=== PATIENT | female | born 1990 | race Caucasian/White ===

== ENCOUNTER 2024-10-31 11:51 | Emergency (ER) | payer SELFPAY ==
[2024-10-31 11:58] VITALS: BP 165/106
--- NOTE | 2024-10-31 13:05 | ED.MUSCINJ ---
HPI-Injury
General
Chief Complaint: Musculo-Skeletal Complaint
Source: patient
Exam Limitations: none
Time Seen by Provider: 10/31/24 12:50
History of Present Illness-Injury
Initial Injury comments:
34-year-old female presents complaining of posterior left thigh pain starting today. 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 The
pain is made worse when she straightens her leg. No prior injury similar to this. No numbness or tingling. No other complaints at this time
Phy Exam
Physical Exam
Physical Exam:
General: Well-appearing female no acute respiratory distress
HEENT: Normocephalic atraumatic
Musculoskeletal exam: Left posterior thigh tender over the distal thigh. The posterior joint line of the knee is nontender. She is nontender anteriorly about the knee. Patient reluctant to straighten the leg as she has increased difficulty doing
so.
Injury Course
Orders/Labs/Results
Orders:
Orders
10/31/24 13:02
Crutches-Treatment ONCE
Knee Immobilizer Left-Treatmen ONCE
Ibuprofen [Motrin] 600 mg PO NOW STA
MDM/Problems Addressed
Differential Diagnosis Includes:
Left posterior thigh pain while running she felt a pop. This is likely a hamstring injury. Do not suspect fracture. Given traumatic injury do not suspect DVT.
Will be given crutches and a knee immobilizer will be advised to take anti-inflammatories and muscle relaxer with orthopedic follow-up. Imaging not indicated at this
*Pulse Oximetry
SaO2: 97
Oxygen Mode of Delivery: Room air
Patient hypoxic: no
*Critical Care Note
Total Time (30-74mins, 75-104mins- exclusive of procedures): Not Applicable
ED Attending Note
-
Portions of this chart may have been created with voice recognition software.� Occasional wrong word or��sound alike� substitutions may have occurred due to the inherent limitations of voice recognition software.
Discharge Plan
Departure
Patient Disposition: Home (Routine Discharge)
Date of Disposition: 10/31/24
Time of Disposition: 13:06
Patient with high blood pressure during this ER visit?: No
Discharge Problem:
Hamstring strain
Prescriptions:
New
cyclobenzaprine 10 mg tablet
10 mg PO TID PRN (Reason: spasm) Qty: 10 0RF
Referrals:
Cherry Song, [employer] [Family Provider, Family Practice]
Activity Restrictions/Additional Instructions:
Rest. Use ice or heat to the sore spot. Use crutches for support when ambulating. Continue with Motrin and use muscle relaxer if needed. Follow-up with [facility] for further evaluation
Interventions
Interventions:
*Risk Screen - Suicide Last Done: 10/31/24 11:58
*General Assessment Last Done: 10/31/24 12:19
*Neglect/Abuse Screening Last Done: 10/31/24 11:58
*ED- Fall Risk Assessment Last Done: 10/31/24 12:19
*ED COVID-19 Vaccine History Last Done: 10/31/24 11:58
ED-Musculoskeletal Assessment Last Done: 10/31/24 12:19
Discharge Date and Time
Print Language: SWEDISH
[2024-10-31] MEDS: MOTRIN 600 MG PO (13:09)
== END 2024-10-31 13:28 | disposition home or self-care (01) ==
LOC: EMR 11:51
PROVIDERS: EMERGENCY PHYSICIAN Emergency Medicine; FAMILY PHYSICIAN Nurse Practitioner Family
DX: S76.812A Strain of other specified muscles, fascia and tendons at thigh level, left thigh, initial encounter (principal); X58.XXXA Exposure to other specified factors, initial encounter; Y93.02 Activity, running
CPT/HCPCS: 99282; 29505